=== PATIENT | male | born 1985 | race Caucasian/White ===

== ENCOUNTER 2021-10-18 20:54 | Emergency (ER) | payer SELFPAY ==
[~2021-10-18] VITALS: Ht 175.3 cm; Wt 90.9 kg
[2021-10-18] MEDS ORDERED: ACET-784 PO (21:01)
[2021-10-18] MEDS ORDERED: ACETAMINOPHEN 325 MG TABLET PO ONE (21:15)
[2021-10-18 21:43] LABS: COVID AG,FIA SOURCE NASAL SWAB
[2021-10-18 22:24] LABS: INFLUENZA TYPE A NEGATIVE FOR TYPE A (NEGATIVE); INFLUENZA TYPE B NEGATIVE FOR TYPE B (NEGATIVE)
[2021-10-18] MEDS ORDERED: IBUPROFEN 800 MG TABLET PO ONE (22:30)
[2021-10-18 23:00] VITALS: BP 114/73
== END 2021-10-18 23:05 | disposition home or self-care (01) ==
LOC: EMS 21:01
DX: U07.1 COVID-19 (principal); F17.210 Nicotine dependence, cigarettes, uncomplicated; Z79.899 Other long term (current) drug therapy
CPT/HCPCS: 87804; 99285; Z7502; Z7610